=== PATIENT | male | born 1985 | race Caucasian/White ===

== ENCOUNTER → 2018-06-07 | Outpatient (CLI) | payer OTHER ==
[~2018-06-07] MED LIST: ACET65SU PR; ATOR1TAB21 PO; BUPR1TAB52 PO; MELO15TA28 PO; OXAY1TAB PO; SERO50TA27 PO; TYLE500T78 PO
[2018-06-07 17:53] LABS: ALBUMIN 4.1 GM/DL (3.2-5.2); ALT/SGPT 34 U/L (12-78); BILIRUBIN,TOTAL 0.2 MG/DL (0.2-1.0); BLOOD UREA NITROGEN 11 MG/DL (7-18); CALCIUM LEVEL 8.8 MG/DL (8.5-10.1); CARBON DIOXIDE LEVEL 27 MEQ/L (21-32); CHLORIDE LEVEL 106 MEQ/L (98-107); CREATININE FOR GFR 0.92 MG/DL (0.70-1.30); GLOMERULAR FILTRATION RATE > 60.0 (>60); GLUCOSE, FASTING 96 MG/DL (70-100); LDH LACTATE DEHYDROGENASE 442 U/L (87-241); POTASSIUM SERUM 4.4 MEQ/L (3.5-5.1); SODIUM LEVEL 140 MEQ/L (136-145); TOTAL PROTEIN 7.7 GM/DL (6.4-8.2)
[2018-06-07 18:19] LABS: BASO % 0.7 % (0.0-1.0); EOS # 0.2 10^3/uL (0.0-0.50); EOS % 3.1 % (0.0-3.0); LYMPH # 2.3 10^3/uL (1.5-4.5); MEAN CORPUSCULAR HEMOGLOBIN 30.2 pg (27.0-33.0); MEAN CORPUSCULAR HGB CONC 34.1 g/dl (32.0-36.5); MEAN CORPUSCULAR VOLUME 88.7 fl (80.0-96.0); MONO # 0.7 10^3/uL (0.0-0.8); MONO % 11.9 % (0.0-5.0); NEUTROPHILS # 2.5 10^3/uL (1.8-7.7); PLATELET COUNT, AUTOMATED 261 10^3/uL (150-450); RED BLOOD COUNT 4.96 10^6/uL (4.30-6.10); WHITE BLOOD COUNT 5.7 10^3/uL (4.0-10.0)
== END ==
LOC: M LAB 16:43
PROVIDERS: ATTEND Urology Pediatric Urology
DX: N50.9 Disorder of male genital organs, unspecified (principal); Z79.899 Other long term (current) drug therapy
CPT/HCPCS: 36415; 80053; 82105; 83615; 84443; 84702; 85025; G0463

== ENCOUNTER 2018-06-08 08:58 | Day surgery (SDC) | payer OTHER ==
[~2018-06-08] VITALS: Ht 175.3 cm; Wt 106.6 kg
[2018-06-08] MEDS ORDERED: PIPERACILLIN/TAZOBACTAM SOD 3.375 GM in D5W MINI-BAG PLUS 50 ML IV ONE (09:00)
[2018-06-08] MEDS ORDERED: BUPR1TAB52 PO (10:03)
[2018-06-08] MEDS ORDERED: ATOR1TAB21 PO (10:03)
[2018-06-08] MEDS ORDERED: MELO15TA28 PO (10:04)
[2018-06-08] MEDS ORDERED: SERO50TA27 PO (10:05)
[2018-06-08] MEDS ORDERED: ACET65SU PR (10:05)
[2018-06-08] MEDS ORDERED: LIDOCAINE 2% INJ 100 MG/5 ML SDV (FOR ANES.) As Ordered ONE (13:06)
[2018-06-08] MEDS ORDERED: PROPOFOL 200 MG/20 ML VIAL As Ordered ONE (13:06)
[2018-06-08] MEDS ORDERED: fentaNYL 100 MCG/2 ML INJECTION (J3010) As Ordered ONE ×3 (13:07→15:52)
[2018-06-08] MEDS ORDERED: MIDAZOLAM INJ 2 MG/2 ML VIAL (J2250) As Ordered ONE (13:07)
[2018-06-08] MEDS ORDERED: TYLE500T78 PO (13:15)
[2018-06-08] MEDS ORDERED: ROCURONIUM BROMIDE 50 MG/5 ML VIAL As Ordered ONE (13:16)
[2018-06-08] MEDS ORDERED: dexameTHASONE 4 MG/ML 1ML VIAL (J1100) As Ordered ONE (14:21)
[2018-06-08] MEDS ORDERED: ePHEDrine SULFATE 25 MG/5 ML(5MG/ML) SYRINGE As Ordered ONE (14:33)
[2018-06-08] MEDS ORDERED: ONDANSETRON 4MG/2ML VIAL (J2405) As Ordered ONE (14:52)
[2018-06-08] MEDS ORDERED: SUGAMMADEX SODIUM 500 MG/5 ML VIAL (BRIDION) As Ordered ONE (14:59)
--- NOTE | 2018-06-08 15:50 | ROOPDOC ---
[facility] Report Of Operation Report of Operation DATE OF PROCEDURE: 06/08/18 PREPROCEDURE DIAGNOSES: right testis mass; s/p right inguinal hernia repair; h/o etoh, marijuana addiction; did not complete use of hibiclens. POSTPROCEDURE DIAGNOSES: same. PROCEDURE: right radical orchiectomy. SURGEON: Ronald Ruiz MD MPH [facility] ANESTHESIA: GET (Padma Hernandez CRNA, Dr. Germain). ESTIMATED BLOOD LOSS: Approximately 10 mL. 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 Leon). DESCRIPTION OF PROCEDURE: After informed consent with his brother and girlfriend as witness, pt was brought to the operating room where a routine time out was completed with all stakeholders present. After anesthesia induction the patient who was supine on the surgical table was prepped and draped with careful attention placed at the right groin where 15 blade was used incise through skin and campers and Gavino tissue to the testicular cord structured which were carefully manipulated and compressed with 1/2 [place] as the right testis was bluntly and sharply dissected out of the scrotum sac and the inguinal incision. The vasculare supply and the vas where high ligated with 2-0 silk suture ligature and hand held bipolar cautery. Subsequently 2-0 PDS was used to close layers incised. 4-0 Monocryl was used to close his skin in running subcuticular fashion. Dermabond was placed on his skin. The patient was cleaned and dried with alcohol based liquid jelly and peroxide. Fluffs Gauze were placed at his scrotum and right groin with JOCK STRAP. He is wear this product for 6 weeks. He is instructed not to lift >10# for six weeks. He's warned about pain/discomfort, numbness, metastatic or locally advanced disease, abscesses/infection, bleeding, hematoma, cancer or benign disease associated with testis mass. He has elevated LDH associated with Tylenol use chronically, passed etoh addiction and possibly this tumor mass. We will evaluate his tumor burden in several weeks for improvement. [facility] is pending other labs except LDH are reviewed and essentially normal. CT scan of chest and abdomen/pelvis do not reveal current metastatic disease. He states verbally that I can speak with brother and girlfriend about this. Ronald Ruiz MD MPH [facility] Ronald Ruiz MD Jun 08, 2018 13:07
[2018-06-08] MEDS ORDERED: OXAY1TAB PO (15:51)
[2018-06-08] MEDS ORDERED: PERCOCET 5MG/325MG TAB As Ordered ONE (15:52)
[2018-06-08] MEDS: PERCOCET 5MG/325MG TAB PO PRN ×2 (15:55→16:20)
[2018-06-08] MEDS: fentaNYL 100 MCG/2 ML INJECTION (J3010) IV PRN ×4 (15:55→16:10)
[2018-06-08] MEDS ORDERED: METOCLOPRAMIDE INJ 10MG/2ML VIAL (J2765) IV PRN (16:00)
[2018-06-08] MEDS ORDERED: LR 1,000 ML IV SCH (16:00)
[2018-06-08] MEDS ORDERED: ONDANSETRON 4MG/2ML VIAL (J2405) IV PRN (16:00)
[2018-06-08 17:45] VITALS: BP 123/76
--- NOTE | 2018-06-09 00:41 | ECGEPIP ---
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
== END 2018-06-08 18:10 | disposition home or self-care (01) ==
LOC: M SDC 08:58
PROVIDERS: ATTEND Urology Pediatric Urology
DX: C62.91 Malignant neoplasm of right testis, unspecified whether descended or undescended (principal); E78.00 Pure hypercholesterolemia, unspecified; E66.9 Obesity, unspecified; R94.5 Abnormal results of liver function studies; M41.9 Scoliosis, unspecified; Z86.59 Personal history of other mental and behavioral disorders; Z72.0 Tobacco use
CPT/HCPCS: 54530; 87070; 87075; 87116; 87205; 87206; 88307; 88309; 88331; 93005; J1100; J2250; J2405; J2543; J3010; Q9967

== ENCOUNTER → 2018-06-08 | Outpatient (CLI) | payer OTHER ==
[~2018-06-08] MED LIST changes: +ISOVUE-370 76% 100ML VIAL (Q9967) As Ordered ONE
--- NOTE | 2018-06-08 08:46 | REP ---
Clinical: Testicular mass. Technique: Axial contrast enhanced images from the lung bases to the pubic symphysis using 100 ml Isovue 370 intravenous contrast material with precontrast images of the abdomen as well as coronal and sagittal re-formations. Findings: Lung bases are clear. Liver, spleen, pancreas, gallbladder, bilateral adrenal glands and kidneys are normal. The enteric system is without obstruction or acute inflammatory process. Normal terminal ileum and appendix are identified in the right lower quadrant. Pelvis demonstrates normal bladder and age appropriate prostate/seminal vesicles. There is prominence and increased soft tissue of the right spermatic cord through the groin and inguinal canal with visible hyperemia extending into the right efrain scrotum where engorged vessels, hydrocele, and large right efrain scrotum is appreciated. Sonographic correlation is required for further investigation. Impression: 1. Swelling and hyperemia involving the right spermatic cord and right efrain scrotum with dilated vasculature, hydrocele and possible enlarged testicle. 2. No acute abdominopelvic pathology otherwise appreciated. Electronically Signed by Kodi Murray MD 06/08/2018 08:38 A
--- NOTE | 2018-06-08 08:48 | REP ---
Clinical: Testicular mass. Technique: Axial contrast enhanced images from the thoracic inlet to the upper abdomen with coronal and sagittal re-formations using 100 ml Isovue 370 intravenous contrast material. Findings: Bilateral lung rios are well-aerated and clear. No consolidation, effusion or pneumothorax. No significant nodule or mass lesion identified. Tracheobronchial tree is patent. No axillary, hilar, or mediastinal adenopathy. Mediastinum demonstrates normal thoracic aorta, pulmonary vasculature and heart/pericardium. The surrounding musculoskeletal structures are intact and normal. Impression: Normal contrast enhanced chest CT. Electronically Signed by Kodi Murray MD 06/08/2018 08:39 A
== END ==
LOC: M RAD 08:01 → EDUNIT# 09:00
PROVIDERS: ATTEND Urology Pediatric Urology
DX: N50.89 Other specified disorders of the male genital organs (principal)

== ENCOUNTER → 2022-07-02 | Outpatient (CLI) | payer OTHER ==
[~2022-07-02] MED LIST changes: +ARIP1TAB4 PO; +AZEL1SPR3 NARES; +CLAR10CA3 PO; +CRES20TA2 PO; +HYDR-4570 PO; -ISOVUE-370 76% 100ML VIAL (Q9967) As Ordered ONE; +OMEG10002 PO; +PRAZ2CAP PO; -SERO50TA27 PO; +SERO50TA4 PO; +[UNRECOGNIZED DRUG - CODE] PO
== END ==
LOC: M LABSMTC 08:51
PROVIDERS: ATTEND Anesthesiology
DX: Z01.812 Encounter for preprocedural laboratory examination (principal); Z11.52 Encounter for screening for COVID-19

== ENCOUNTER 2022-07-07 10:02 | Day surgery (SDC) | payer OTHER ==
[~2022-07-07] VITALS: Ht 182.9 cm; Wt 113.9 kg
[~2022-07-07 10:02] MED LIST changes: +LIDOCAINE 2% 100MG/5ML SDV (FOR ANES.) As Ordered ONE; +NS 1,000 ML IV ONE; +propofoL 200 MG/20 ML VIAL As Ordered ONE
[2022-07-07 13:20] VITALS: BP 122/78
== END 2022-07-07 13:20 | disposition home or self-care (01) ==
LOC: M OPP 10:02
PROVIDERS: ATTEND Surgery
DX: D12.0 Benign neoplasm of cecum (principal); Z85.47 Personal history of malignant neoplasm of testis; Z92.3 Personal history of irradiation; Z92.21 Personal history of antineoplastic chemotherapy; F17.200 Nicotine dependence, unspecified, uncomplicated; E78.00 Pure hypercholesterolemia, unspecified; F32.9 Major depressive disorder, single episode, unspecified; F41.9 Anxiety disorder, unspecified

== ENCOUNTER → 2022-10-21 | Outpatient (CLI) | payer OTHER ==
[~2022-10-21] MED LIST changes: +BRIN1TAB PO; -LIDOCAINE 2% 100MG/5ML SDV (FOR ANES.) As Ordered ONE; -NS 1,000 ML IV ONE; +ONDA4TAB6 PO; -propofoL 200 MG/20 ML VIAL As Ordered ONE
[2022-10-21 11:34] LABS: HEMATOCRIT 40.4 % (42.0-52.0); HEMOGLOBIN 14.1 g/dl (13.5-17.5); MEAN CORPUSCULAR HEMOGLOBIN 32.1 pg (27.0-33.0); MEAN CORPUSCULAR HGB CONC 34.9 g/dl (32.0-36.5); PLATELET COUNT, AUTOMATED 180 10^3/uL (150-450); RED BLOOD COUNT 4.39 10^6/uL (4.30-6.10); WHITE BLOOD COUNT 6.5 10^3/uL (4.0-10.0)
[2022-10-21 11:56] LABS: CALCIUM LEVEL 8.6 MG/DL (8.5-10.1); CREATININE FOR GFR 1.53 MG/DL (0.70-1.30); GLOMERULAR FILTRATION RATE 54.8 (>60); POTASSIUM SERUM 4.1 MMOL/L (3.5-5.1)
== END ==
LOC: M EKG 10:45
PROVIDERS: ATTEND Urology
DX: Z01.818 Encounter for other preprocedural examination (principal); N39.0 Urinary tract infection, site not specified; N13.30 Unspecified hydronephrosis

== ENCOUNTER 2022-10-26 11:34 | Day surgery (SDC) | payer OTHER ==
[~2022-10-26] VITALS: Ht 182.9 cm; Wt 116.6 kg
[~2022-10-26 11:34] MED LIST changes: +ceFAZolin SOD 2 GM in IV 1 EA IV ONE
[2022-10-26] MEDS ORDERED: LIDOCAINE 2% 5ML JELLY UROJET As Ordered ONE (12:31)
[2022-10-26] MEDS ORDERED: ISOVUE-300 61% 100ML VIAL As Ordered ONE (12:32)
[2022-10-26] MEDS ORDERED: MIDAZOLAM INJ 2MG/2ML VIAL As Ordered ONE (12:34)
[2022-10-26] MEDS ORDERED: KETOROLAC 60MG 2ML VIAL As Ordered ONE (12:34)
[2022-10-26] MEDS ORDERED: propofoL 200 MG/20 ML VIAL As Ordered ONE ×2 (12:34→13:20)
[2022-10-26] MEDS ORDERED: fentaNYL 100 MCG/2 ML INJECTION As Ordered ONE (12:34)
[2022-10-26] MEDS ORDERED: LIDOCAINE 2% 100MG/5ML SDV (FOR ANES.) As Ordered ONE (12:34)
[2022-10-26] MEDS ORDERED: LR 1,000 ML IV SCH (13:25)
[2022-10-26] MEDS ORDERED: fentaNYL 100 MCG/2 ML INJECTION IV PRN (13:25)
[2022-10-26] MEDS ORDERED: ONDANSETRON 4MG 2ML VIAL IV PRN (13:25)
[2022-10-26] MEDS ORDERED: HYDROMORPHONE HCL 0.5 MG/ 0.5 ML SYRINGE IV PRN (13:25)
[2022-10-26 13:56] VITALS: BP 137/80; TEMP 97.4; O2SAT 97
== END 2022-10-26 14:20 | disposition home or self-care (01) ==
LOC: M SDC 11:34
PROVIDERS: ATTEND Urology
DX: N13.2 Hydronephrosis with renal and ureteral calculous obstruction (principal); F12.10 Cannabis abuse, uncomplicated; Z92.21 Personal history of antineoplastic chemotherapy; Z92.3 Personal history of irradiation; Z85.47 Personal history of malignant neoplasm of testis; F41.9 Anxiety disorder, unspecified; F32.A Depression, unspecified; F43.10 Post-traumatic stress disorder, unspecified; Z79.899 Other long term (current) drug therapy; Z88.5 Allergy status to narcotic agent
CPT/HCPCS: 52332; 74420; C1769; C2617; J0690; J1885; J2250; J3010; Q9967

== ENCOUNTER → 2022-11-13 | Outpatient (CLI) | payer OTHER ==
[~2022-11-13] MED LIST changes: +FUROSEMIDE 20MG/2ML VIAL As Ordered ONE; -ceFAZolin SOD 2 GM in IV 1 EA IV ONE
== END ==
LOC: M RAD 08:15
PROVIDERS: ATTEND Urology
DX: N28.1 Cyst of kidney, acquired (principal)
CPT/HCPCS: 78708; A9562; J1940

== ENCOUNTER → 2024-02-14 | Outpatient (CLI) | payer OTHER ==
[~2024-02-14] MED LIST changes: -FUROSEMIDE 20MG/2ML VIAL As Ordered ONE; +ONDA-282 PO; -ONDA4TAB6 PO
== END ==
LOC: M PLARAD 09:45
PROVIDERS: ATTEND Dietitian, Registered
DX: C62.11 Malignant neoplasm of descended right testis (principal)
CPT/HCPCS: 78815; A9552

== ENCOUNTER → 2024-03-07 | Outpatient (CLI) | payer OTHER ==
[~2024-03-07] VITALS: Ht 182.9 cm; Wt 112.0 kg
[~2024-03-07] MED LIST changes: +CELE50CA PO; +DICL100G10 TOP; +LIDOCAINE 1% MDV 20ML VIAL As Ordered ONE; +MIDAZOLAM INJ 2MG/2ML VIAL As Ordered ONE; +ceFAZolin 2 GM/D5W 50 ML IV BAG As Ordered ONE; +fentaNYL 100 MCG/2 ML INJECTION As Ordered ONE
[2024-03-07 07:13] VITALS: TEMP 96
[2024-03-07] MEDS: NS 1,000 ML IV SCH (07:25)
[2024-03-07] MEDS: ceFAZolin SOD 2 GM in IV 1 EA IV ONE (08:15)
[2024-03-07 08:57] VITALS: BP 137/84; O2SAT 99
== END ==
LOC: M IRPRO 06:54
PROVIDERS: ATTEND Dietitian, Registered
DX: C62.90 Malignant neoplasm of unspecified testis, unspecified whether descended or undescended (principal)
CPT/HCPCS: 36590; 99152; J0690; J2250; J3010